=== PATIENT | male | born 1975 | race Two or more races ===

== ENCOUNTER 2020-01-22 21:55 | Emergency (ER) | payer BC, OTHER ==
[2020-01-22] MEDS ORDERED: Colchicine 0.6 MG Tab PO STA (22:39)
[2020-01-22] MEDS ORDERED: Acetaminophen/HYDROcodone 325-5 MG Tab PO ONE (22:40)
--- NOTE | 2020-01-22 22:46 | EDM.PDOC ---
ED HPI GENERAL MEDICAL PROBLEM - General Chief Complaint: Lower Extremity Injury/Pain Stated Complaint: POSS GOUT IN KNEE/KNEE PAIN Time Seen by Provider: 01/22/20 22:21 Source of Information: Reports: Patient History Limitations: Reports: No Limitations - History of Present Illness INITIAL COMMENTS - FREE TEXT/NARRATIVE: Mr. Elaine is a very pleasant 44-year-old man with a past medical history significant for gout of the left knee, diagnosed by aspiration of the joint in [place] in 2018. He states that he was prescribed allopurinol, which he took until 2019, but because he had been symptom-free for so long, it was discontinued. Of interest, the patient denies ever having had symptoms consistent with podagra. The patient now presents to the ED stating that he developed left knee swelling and pain yesterday, 01/21/2020. His pain is the same as back in 2018. No recent injury to the knee. He states that he has taken Tylenol, which did not help at all. Here in the ED, the patient is found to be hemodynamically stable, afebrile, saturating 99% on room air. Other than his left knee pain and swelling, the patient denies recent fever, chills, sore throat, ear pain, nasal or sinus congestion, cough, dyspnea, chest pain, palpitations, nausea, vomiting, constipation, diarrhea, abdominal pain, urinary symptoms, recent weight gain or weight loss, recent bloody bowel movements or black bowel movements, headaches, or rashes. The patient lives here, but his PCP is in [place]. He states that he will be returning to [place] this coming weekend. Left Knee Pain Score (Numeric/FACES): 8 - Related Data Allergies Allergy/AdvReac Type Severity Reaction Status Date / Time No Known Allergies Allergy Verified 01/22/20 22:17 Home Meds: Home Meds Colchicine 1 tab PO DAILY PRN #5 tablet 01/22/20 [Rx] Past Medical History Musculoskeletal History: Reports: Gout (aspiration-confirmed) Social & Family History - Tobacco Use Smoking Status *Q: Never Smoker - Caffeine Use Caffeine Use: Reports: None - Alcohol Use Alcohol Use History: Yes Alcohol Use Frequency: Socially - Recreational Drug Use Recreational Drug Use: No - Living Situation & Occupation Living situation: Reports: , with Spouse, with Family (2 kids) Occupation: Employed (Construction) Review of Systems - Review of Systems Review Of Systems: Comprehensive ROS is negative, except as noted in HPI. ED EXAM, GENERAL - Physical Exam Exam: See Below Exam Limited By: No Limitations General Appearance: Alert, WD/WN, No Apparent Distress Extremities: Other (Significant swelling of the left knee, when compared to the right, with associated calor to the anterior knee, however, there is no erythema to the knee. There is significant tenderness to palpation of the anterior knee, and pain is induced with even mild PROM. Neurovascular status of the left lower extremity is intact.) Course - Vital Signs Last Recorded V/S: Last Vital Signs Temp 37.1 C 01/22/20 22:11 Pulse 85 01/22/20 22:11 Resp 18 01/22/20 22:11 BP 136/87 01/22/20 22:11 Pulse Ox 99 01/22/20 22:11 - Orders/Labs/Meds Meds: Medications Discontinued Medications Generic Name Dose Route Start Last Admin Trade Name Freq PRN Reason Stop Dose Admin Hydrocodone Bitart/Acetaminophen 2 tab 01/22/20 22:40 01/22/20 22:44 Sterling 325-5 Mg PO 01/22/20 22:41 2 tab ONETIME ONE Administration Colchicine 1.8 mg 01/22/20 22:39 01/22/20 22:44 Colcrys PO 01/22/20 22:40 1.8 mg ONETIME STA Administration - Re-Assessments/Exams Free Text/Narrative Re-Assessment/Exam: 01/22/20 22:40 As above, the patient appears to be having an acute flare of gout in his left knee. He will be treated with colchicine 1.2 mg po now, with an additional 0.6 mg to be taken at home in about 1 hour. I will prescribe colchicine 0.6 mg, 1 tab po Qday x 5 days, then the patient will follow-up with his own physician in [place] next week to determine a long-term treatment. Departure - Departure Time of Disposition: 22:41 Disposition: Home, Self-Care 01 Condition: Good Clinical Impression: Acute gout of left knee - Discharge Information *PRESCRIPTION DRUG MONITORING PROGRAM REVIEWED*: Not Applicable *COPY OF PRESCRIPTION DRUG MONITORING REPORT IN PATIENT BRIGETTE: Not Applicable Prescriptions: Colchicine 1 tab PO DAILY PRN #5 tablet PRN Reason: Pain Instructions: Low-Purine Eating Plan Referrals: PCP,None [Primary Care Provider] - Forms: ED Department Discharge Additional Instructions: You were seen in the emergency room for pain and swelling to your left knee. Based on your history and physical examination, your symptoms are most likely due to an acute flare of gout. You have been started on the anti-gout medicine colchicine. A single tablet has been given to you to take home. You are to take this around 11:45 tonight, at home. A prescription for colchicine has been sent to the [place] pharmacy located in the [employer] store. Take 1 tablet of colchicine every day, as needed for left knee pain, for up to 5 days, as prescribed. Follow-up with your physician in [place] to determine the best long-term treatment for your gout. If any other problems, please do not hesitate to return to the ER. Sepsis Event Note - Evaluation Sepsis Screening Result: No Definite Risk - Focused Exam Vital Signs: Vital Signs Temp Pulse Resp BP Pulse Ox 01/22/20 22:11 37.1 C 85 18 136/87 99 Date Exam was Performed: 01/22/20 Time Exam was Performed: 23:57
== END 2020-01-22 22:50 | disposition home or self-care (01) ==
LOC: JD.ED 21:55
DX: M10.062 Idiopathic gout, left knee (principal); Z79.899 Other long term (current) drug therapy
CPT/HCPCS: 99283; A9270; 99282